=== PATIENT | female | born 1995 | race Caucasian/White ===

== ENCOUNTER 2018-08-13 11:02 | Observation (INO) ==
[2018-08-13 12:28] LABS: Amphetamine Screen,Urine Negative ng/mL (Cutoff=1000); Barbiturate Screen,Urine Negative ng/mL (Cutoff=200); Benzodiazepines Screen,Urine Negative ng/mL (Cutoff=200); Cannabinoid Screen,Urine Negative ng/mL (Cutoff = 50); Cocaine Screen,Urine Negative ng/mL (Cutoff= 300); Opiate Screen,Urine Negative ng/mL (Cutoff=300); Phencyclidine Screen,Urine Negative ng/mL (Cutoff=25)
[2018-08-13 13:36] LABS: Bilirubin,Urine Negative (Negative); Blood,Urine Negative (Negative); Clarity,Urine Cloudy (Clear); Color,Urine Yellow (Yellow); Glucose,Urine (UA) Normal (Normal); Ketones,Urine Negative (Negative); Leukocyte Esterase,Urine Moderate (Negative); Nitrite,Urine Negative (Negative); Protein,Urine Negative (Neg-Trace); Specific Gravity,Urine 1.014 (1.010-1.025); Urobilinogen,Urine Normal (Normal)
[2018-08-13 13:42] LABS: Bacteria,Urine Moderate per hpf (None-Few); Hyaline Casts,Urine None Seen per lpf (None-Few); Squamous Epithelial Cell,Urine Many per lpf (None-Few); WBC,Urine 15-30 per hpf (0-3)
[2018-08-13 13:48] LABS: RBC,Urine 0-3 per hpf (0-3)
--- NOTE | 2018-08-13 14:56 | Discharge Summary ---
Date of Encounter: 08/13/18 Time of Encounter: 14:55 - Discharge Diagnosis (1) 36 weeks gestation of Priority: Primary Status: Acute Comments: Admit to observation for possible rupture membranes at 36 weeks 5 days (2) NST (non-stress test) reactive Priority: Secondary Status: Acute Comments: Heart rate category 1 +15 x 15 accelerations, no decelerations. (3) Vaginal discharge during in third trimester Priority: Secondary Status: Acute Comments: Vaginosis panel collected Sterile speculum exam completed with large amount of yellow-white discharge noted in vaginal vault. No amniotic fluid visualized at cervical os with Valsalva maneuver - Discharge Medications Prescriptions: No Action RX: Ferrous Sulfate [Iron] 1 tab PO DAILY Pnv95/Ferrous Fumarate/FA [ Vitamin Tablet] 1 tab PO DAILY Home Medications: Pnv95/Ferrous Fumarate/FA [ Vitamin Tablet] 1 tab PO DAILY 08/13/18 [History] RX: Ferrous Sulfate [Iron] 1 tab PO DAILY 08/13/18 [History] Allergies/Adverse Reactions: Allergy/AdvReac Type Severity Reaction Status Date / Time No Known Allergies Allergy Verified 08/13/18 11:26 Data Procedures and tests throughout hospitalization: Laboratory Tests 08/13/18 08/13/18 11:55 13:13 Urine Color Yellow Urine Clarity Cloudy A Urine pH 7.0 Ur Specific [place] 1.014 Urine Protein Negative Urine Glucose (UA) Normal Urine Ketones Negative Urine Blood Negative Urine Nitrite Negative Urine Bilirubin Negative Urine Urobilinogen Normal Ur Leukocyte Esterase Moderate H Urine Microscopic RBC 0-3 Urine Microscopic WBC 15-30 H Ur Squamous Epith Cells Many H Urine Bacteria Moderate H Hyaline Casts None Seen Ur Culture Indicated? YES A Urine Opiates Screen Negative Ur Barbiturates Screen Negative Ur Phencyclidine Scrn Negative Ur Amphetamines Screen Negative U Benzodiazepines Scrn Negative Urine Cocaine Screen Negative U Marijuana (THC) Screen Negative Ur Drug Screen Interp See Below Labs on day of discharge: Labs from last 24 hours 08/13/18 08/13/18 13:13 11:55 Urine Color Yellow Urine Clarity Cloudy A Urine pH 7.0 Ur Specific [place] 1.014 Urine Protein Negative Urine Glucose (UA) Normal Urine Ketones Negative Urine Blood Negative Urine Nitrite Negative Urine Bilirubin Negative Urine Urobilinogen Normal Ur Leukocyte Esterase Moderate H Urine Microscopic RBC 0-3 Urine Microscopic WBC 15-30 H Ur Squamous Epith Cells Many H Urine Bacteria Moderate H Hyaline Casts None Seen Ur Culture Indicated? YES A Urine Opiates Screen Negative Ur Barbiturates Screen Negative Ur Phencyclidine Scrn Negative Ur Amphetamines Screen Negative U Benzodiazepines Scrn Negative Urine Cocaine Screen Negative U Marijuana (THC) Screen Negative Ur Drug Screen Interp See Below Preliminary micro results at discharge 08/13/18 13:13 Urine Culture - Preliminary Urine,Clean Catch Culture is incubating. Date of admission: 08/13/18 11:02 Discharging clinician: Xenia Seymour Anticipated date of discharge: 08/13/18 - Patient Status Disposition: Home, Self-Care Condition: Good Functional capacity at discharge: independent ambulation Overall status at discharge: patient is progressing back to baseline - Discharge Instructions Follow Up With: Terrell Campos MD [Partnered Physician] - Additional Instructions: LABOR AND DELIVERY DISCHARGE INSTRUCTIONS Signs and Symptoms to be Reported to your Doctor Immediately: * Sudden gush, continuous or intermittent lead of fluid from vagina (note the time of gush and color of fluid) * Onset of bright red vaginal bleeding with or without pain (if you had a vaginal exam during this visit you may notice some dark red spotting. This is normal.) * Lower abdominal cramping or backache that is premenstrual-like feeling. * More than 6 contractions in one hour. * Burning during urination, having to urinate more frequently or pain in your mid-back. * A change in the baby's activity. This could be an increase or decrease in activity. * Severe headache which does not go away with tylenol. * Sudden swelling in the face, hands, arms and/or legs. * Upper abdominal pain - sometimes associated with heartburn or nausea and is not relieved by Maalox, Mylanta or Tums. * Dizziness or blurred vision or visual disturbances (seeing stars/lights). * Kick Counts One hour after a meal, lay down on one side in a quiet place. Count the number of doyle the baby moves during an hour. If less than 6 movements, notify your physician. Diet: *Force fluids - 8-10 tall glasses of fluid per day. May include popsicles and jello. *Limit caffeine - this includes chocolate, coffee, tea, any soft drink containing such as all trung, Ramiro Yellow and Mountain Dew - Diet and Activity Activity: resume usual activities as tolerated Diet: regular diet Hospital Course [employer] Hospital course: Cyndy is a at 36 weeks 5 days who arrived today with complaints of possible rupture membranes last night around 9:00 PM. She states at that time she had fluid dripping down her legs for approximately 1 minute. The leaking had subsided until this morning when she noticed a discharge. She reports positive movement, denies vaginal bleeding and contractions. A sterile speculum exam was completed and a moderate amount of white yellow vaginal discharge was noted. Sample was obtained for fern which returned negative and vaginosis panel was collected and is pending at time of note. Cervix appeared to be closed. Patient was given labor precautions and discharged home with significant other at her side. She will be notified if her vaginosis panel returns abnormal. She is to follow-up in the office this week with Dr. Campos for routine care. Time Attestation: Total time spent providing and/or coordinating discharge services: Time Spent: Less than 30 minutes Exam - Constitutional General appearance IM: A&O X 3, pleasant, no acute distress, answers questions appropriately - Respiratory Respiratory exam: Present: CTAB - Cardiovascular Cardiovascular exam IM: Present: RRR, +S1, +S2 - GI/Abdominal GI/Abdominal exam IM: normal bowel sounds, soft - Rectal Rectal exam: deferred - External exam: normal external exam - Extremities Exam Extremities exam IM: Present: full ROM, normal capillary refill, normal inspection - Neurological Exam Neurological exam: alert, normal gait, oriented X3 - VTE Reasons for not Prescribing Prophylaxis: Treatment not Indicated - Low risk for VTE
[2018-08-13 14:58] LABS: Gardnerella DNA Not Detected (Not Detect); Trichomonas DNA Not Detected (Not Detect)
[2018-08-13 14:59] LABS: Candida DNA Not Detected (Not Detect)
== END 2018-08-13 14:42 | disposition home or self-care (01) ==
LOC: 1NENULAB
PROVIDERS: ADMIT Registered Nurse; ATTEND Registered Nurse

== ENCOUNTER 2018-08-31 06:25 | Inpatient (IN) ==
[~2018-08-31 06:25] MED LIST: *HR* Nalbuphine 10 MG/ML AMPUL IVP PRN; Famotidine 20 MG/2 ML VIAL IVP PRN; Lidocaine 1% 20 ML MDV INFILT PRN; Metoclopramide 10 MG/2 ML VIAL IVP PRN; Naloxone 0.4 MG/ML INJ IVP PRN; Ondansetron 4 MG/2 ML VIAL IVP PRN
[2018-08-31] MEDS ORDERED: Ringers Solution, Lactated 1,000 ML IVC SCH (06:30)
--- NOTE | 2018-08-31 06:30 | OB/GYN History & Physical ---
Date of Encounter: 08/31/18 Time of Encounter: 06:27 Assessment and Plan (1) 39 weeks gestation of Current visit: Yes Status: Acute (2) SROM (spontaneous rupture of membranes) Current visit: Yes Status: Acute Admit to L&D for observation of labor Expectant management Labs-CBC and clot to hold Intermittent auscultation okay after reactive NST Pain management plan is natural childbirth Anticipate vaginal delivery Dr. Yuen is the OB on-call and is available as needed (3) Intrauterine Current visit: Yes Status: Acute (4) Type A blood, Rh positive Current visit: Yes Status: Acute (5) NST (non-stress test) reactive Current visit: No Status: Acute History of Present Illness Chief complaint: SROM in early labor HPI: Ms. Grant is a 23 year old female at 39 weeks 2 days gestation with an estimated date of of 09/05/18 dated by early ultrasound. She presents with reports of contractions starting about 0400 this morning followed by leakage of fluid starting at about 0530. She endorses good movement and denies vaginal bleeding. Her has been uncomplicated. She has been seen by Dr. Campos throughout her . records are available electronically and have been reviewed. Labs: A+ GBS- HIV- Hep B- T. Palladium- GC/CL- Rubella immune Varicella immune Past Med Surg Social Fam HX - Past Medical History Medical history: no medical history Psychiatric history: no psych history - Past Surgical History Surgical History: no surgical history - Social History Smoking Status: Never smoker Smokeless Tobacco Status: No Alcohol use: none Drug use: none - Family History Mother Family Member Ethnicity: Non- Living Status: Still Living Hx Family Cardiac Disorders: No Hx Family Respiratory Disorders: No Hx Family Cancer: No Hx Family GI Disorders: No Hx Family Endocrine Disorder: Yes (thyroid) Hx Family Neuromuscular Disorders: No Hx Family Neurologic Disorders: No Hx Family HEENT Disorders: No Hx Family Autoimmune Disorders: No Obstetrical History - Pregnancies : 1 Para: 0 Term: 0 : 0 Ab's: 0 Livin Medications and Allergies Pnv95/Ferrous Fumarate/FA [ Vitamin Tablet] 1 tab PO DAILY 08/13/18 [History] Hyoscyamine SL [Levsin SL] 0.125 mg SL Q4HR PRN #30 tab.subl 08/18/18 [Rx] Macrobid mg PO BID 08/18/18 [History] Allergy/AdvReac Type Severity Reaction Status Date / Time No Known Allergies Allergy Verified 08/18/18 01:34 Review of System OB All systems PM: reviewed and no additional remarkable complaints except as stated Exam - Constitutional Constitutional: well developed, well nourished, average body habitus, mild distress - HEENT HEENT: PERRL, Normocephaly, Mucus Membranes Moist - Neck Neck exam: full ROM - Lungs Respiratory exam: CTAB - Cardiovascular Cardiovascular exam: RRR, +S1, +S2 - Breasts Breast: bilateral: normal - Abdomen Abdomen: Present: bowel sounds normal, gravid, non tender - Extremities Extremities exam: full ROM, normal capillary refill, normal inspection, radial pulses palpable and symmetrical - Vulva Vulva: bilateral: normal - Vagina Vagina: Present: normal moisture - Cervix Dilation: 0 (FT) Effacement: 70 Station: -1 - Uterus Uterus exam: Present: normal size, normal contour - Adnexa Adnexa: bilateral: normal - Anus/Rectum Anus/Rectum: Present: normal perianal skin Results All other labs normal. - VTE Reasons for not Prescribing Prophylaxis: Treatment not Indicated - Low risk for VTE
[2018-08-31 06:50] LABS: Hematocrit 35.2 % (35.3-44.9); Immature Granulocytes % 0.6 % (0-4); Lymphocytes % 18.9 %; Mean Corpuscular HGB Conc 34.1 g/dL (31.6-35.5); Mean Corpuscular Hemoglobin 30.9 pg (28.0-33.3); Mean Corpuscular Volume 90.7 fL (83.0-100.0); Mean Platelet Volume 12.1 fL (9.4-12.4); Platelet Count 202 K/mcL (140-400); Red Blood Count 3.88 M/mcL (3.82-4.97); Red Cell Distribution Width 12.9 % (11.5-14.5); Segmented Neutrophils % 71.7 %; White Blood Count 9.5 K/mcL (4.3-11.1)
[2018-08-31 06:51] LABS: Basophils % 0.3 %; Eosinophils # 0.1 K/mcL (0.0-0.6); Eosinophils % 0.6 %; Lymphocytes # 1.8 K/mcL (0.6-4.6); Monocytes # 0.8 K/mcL (0.0-1.3); Monocytes % 7.9 %; Neutrophils # 6.8 K/mcL (1.6-8.9)
[2018-08-31] MEDS ORDERED: Epidural Premix (fent/bupiv) 110 ML EP SCH (07:45)
--- NOTE | 2018-08-31 07:45 | Anesthesia Evaluation PreOp ---
Date of Encounter: 08/31/18 Time of Encounter: 07:45 - Past History Planned Operation: Del, 39wk induction SROM, Cardiac History: Denies any Significant Hx Pulmonary History: Denies Any Significant HX SHODER FILLER History: Denies Any Significant HX Other Medical History: Denies Any Significant HX Anesthesia History: No Prior Anesthetic Complications, Past Anesthesia (no family hx.) Alcohol Use: none Drug use: none Medications and Allergies Pnv95/Ferrous Fumarate/FA [ Vitamin Tablet] 1 tab PO DAILY 08/13/18 [History] Hyoscyamine SL [Levsin SL] 0.125 mg SL Q4HR PRN #30 tab.subl 08/18/18 [Rx] Macrobid mg PO BID 08/18/18 [History] Allergy/AdvReac Type Severity Reaction Status Date / Time No Known Allergies Allergy Verified 08/18/18 01:34 Anesthesia Results - Labs 08/31/18 06:35 Anesthesia Exam - HEENT Pupil (Motor): Pupils equal Mallampati: II Teeth: Normal Oral Opening: Greater than 3 - SHODER FILLER LOC: Oriented SHODER FILLER Motor: Normal RUE, Normal LUE, Normal RLE, Normal LLE, Normal Face SHODER FILLER Sensory: Normal: RUE, LUE, RLE, LLE, Face - Cardiac Rhythm: Regular Murmur: None - Pulmonary Breath Sounds: bilateral Clear Respiratory Effort: Symmetrical Anesthesia Assess/Plan ASA Score: 2 Level of consciousness: Cooperative, Oriented Anesthetic Plan: General, Spinal, Epidural Monitoring Plan: Standard Monitors Recovery Plan: PACU
[2018-08-31 09:31] LABS: Amphetamine Screen,Urine Negative ng/mL (Cutoff=1000); Barbiturate Screen,Urine Negative ng/mL (Cutoff=200); Benzodiazepines Screen,Urine Negative ng/mL (Cutoff=200); Cannabinoid Screen,Urine Negative ng/mL (Cutoff = 50); Cocaine Screen,Urine Negative ng/mL (Cutoff= 300); Opiate Screen,Urine Negative ng/mL (Cutoff=300); Phencyclidine Screen,Urine Negative ng/mL (Cutoff=25)
--- NOTE | 2018-08-31 10:52 | OB Labor Progress Note ---
Date of Encounter: 08/31/18 Time of Encounter: 10:47 Labor Progress Note - Subjective Subjective: Coping well with contractions. Plans an unmedicated . - Vital Signs Vital Signs: WNL - Cervix Cervix: 1/50/-2 - Heart Tones Heart Tones: FHR 130 bpm, moderate variability, +15x15 accels, no decels. Intermittent monitoring - [place]: 2-3 min - Interventions Interventions: SVE Discussed options of cervical veliz, AROM of forebag, or augmentation me dications. Patient would like to wait to proceed with any intervention as she plans an unmedicated . - Plan Physician notified: Yes Plan: Continue intermittent auscultation/monitoring Anticipate
--- NOTE | 2018-08-31 12:32 | OB Labor Progress Note ---
Date of Encounter: 08/31/18 Time of Encounter: 12:29 Labor Progress Note - Subjective Subjective: Patient coping well with contractions with non-pharm pain management techniques - Vital Signs Vital Signs: WNL - Cervix Cervix: 1/80/-2 - Heart Tones Heart Tones: FHR per auscultation 140 bpm with audible accelerations. - [place]: q 2-3 minutes - Interventions Interventions: SVE After consultation with Dr. Frakn, decision made to place cervical veliz and patient accepted procedure. Single veliz balloon inserted without difficulty, 60 mL sterile water instilled. Patient tolerated without difficulty. - Plan Physician notified: Yes Physician notified details: Consulted with Dr. Frank regarding placement of cervical veliz. Plan: Continue expectant management Gentle tug to veliz hourly Recheck when veliz is expelled Anticipate
[2018-08-31] MEDS ORDERED: Epidural Premix (fent/bupiv) 110 ML EP ONE (14:56)
--- NOTE | 2018-08-31 15:21 | Anesthesia Procedures ---
Date of Encounter: 08/31/18 Time of Encounter: 15:03 Procedures: Anesthesia - Epidural/Spinal Patient ID/Chart reviewed: Yes Patient examined: Yes OB Eval: Gestational age: term OB Eval: : 1 OB Eval: Contractions: Non-stressed pattern Consent Obtained: Yes Supplemental Oxygen: None/Room Air Site Prep: Aseptic Technique, Sterile prep and drape, 0.5% Chlorhexidine/Alcohol Patient position: upright Local Anesthetic: Lidocaine 1% Amount of Local Anesthetic used: 2 Touhy Needle Gauge: 18 Touhy Needle Depth (cm): 5 Catheter Depth at Skin (cm): 9 Test Dose (1.5% Lido + Epi): Volume given (mls): 4 Test Dose Result: Negative Loading Dose: Other: 10ml from solution Loading Dose Administered: Thru Catheter Infusion Med: 0.125% Bupivacaine w/ 2 mcg/ml Fentanyl Infusion Rate (mls/hr): [address]: Tegaderm, Tape Interspace Used: L3-L4 Loss of Resistance (TERRENCE): Yes (saline) Blood: No CSF: Yes (25g purposeful no inj. ) Paresthesia: No Procedure: vss though out procedure, FHR stable per rn;s
--- NOTE | 2018-08-31 16:46 | OB Labor Progress Note ---
Date of Encounter: 08/31/18 Time of Encounter: 16:43 Labor Progress Note - Subjective Subjective: Patient comfortable with epidural but feeling some vaginal pressure. - Vital Signs Vital Signs: WNL - Cervix Cervix: 5/80/-1 - Heart Tones Heart Tones: FHR 130 bpm, moderate variability, +15x15 accels, no decels. - [place]: 2-5 min - Interventions Interventions: SVE AROM small forebag for scant amount of fluid. - Plan Physician notified: Yes Physician notified details: Aware of SVE Plan: Epidural placement AROM after patient comfortable with epidural Pitocin augmentation if needed. Anticipate
[2018-08-31] MEDS ORDERED: *HR* Ropivacaine/PF 0.2% 20 ML VIAL ONE ×2 (17:10→20:14)
--- NOTE | 2018-08-31 17:41 | Anesthesia Progress Note ---
Date of Encounter: 08/31/18 Time of Encounter: 17:12 Anesthesia Note - Note Note: 08/31/18 17:40 bolus with 6ml 0.2% rop plain, neg asp, vss, fhr stable per rn's. relief noted post 10min,
[2018-08-31] MEDS ORDERED: Oxytocin 20 units/ LR 1000 mL 20 UNIT/1,000 ML BAG IVC SCH (19:00)
[2018-08-31] MEDS ORDERED: Bupivacaine-MPF 0.25% 10 ML VIAL ONE (20:56)
[2018-08-31] MEDS ORDERED: EPHEDrine 50 MG/ML VIAL ONE (21:24)
--- NOTE | 2018-08-31 21:37 | Anesthesia Procedures ---
Date of Encounter: 08/31/18 Time of Encounter: 21:14 Procedures: Anesthesia - Epidural/Spinal Patient ID/Chart reviewed: Yes Patient examined: Yes OB Eval: Contractions: Non-stressed pattern Consent Obtained: Yes Supplemental Oxygen: None/Room Air Site Prep: Aseptic Technique, Sterile prep and drape, 0.5% Chlorhexidine/Alcohol Patient position: upright Local Anesthetic: Lidocaine 1% Amount of Local Anesthetic used: 2 Touhy Needle Gauge: 18 Touhy Needle Depth (cm): 5 Catheter Depth at Skin (cm): 10 Test Dose (1.5% Lido + Epi): Volume given (mls): 4 Test Dose Result: Negative Loading Dose: Other: 5ml 0.15% rop plain Loading Dose Administered: Thru Catheter Infusion Med: 0.125% Bupivacaine w/ 2 mcg/ml Fentanyl Infusion Rate (mls/hr): [address]: Tegaderm, Tape Interspace Used: L2-L3 Loss of Resistance (TERRENCE): Yes (saline) Blood: No CSF: Yes (25g with 0.7ml 0.25% bup plain) Paresthesia: No Procedure: after rebolus with 7ml 0.2% rop plain, pt still c/o of lower abd pain, after talking with patient and giving options with R/B's she wishes to proceed with another epidural at different interspace. vss though out procedure, fhr stable per rn's
--- NOTE | 2018-09-01 00:27 | OB/GYN Procedure Note ---
Delivery - Delivery Date: 09/01/18 Provider: Xenia Seymour Intrapartum events: febrile- temp >100.3 Delivery induction: veliz Delivery augmentation: pitocin Delivery monitor: external FHT, internal uterine Anesthesia: epidural Quantitated Blood Loss: 150 - Infant (s) A Infant Delivery Date: 08/31/18 Infant Delivery Time: 23:29 Presentation: vertex Position: SULEMA Route of delivery: Gender: Male Viability: Viable at 1 minute: 8 at 5 mins: 9 Shoulder Dystocia: not encountered Specimens collected: cord blood Placenta: spontaneous Cord: 3 umbilical vessels - Repair Episiotomy: none Laceration Description: Perineal - 2nd Degree - Complications Delivery complications: none Delivery comments: Called to room for delivery. Under maternal effort, spontaneous delivery of viable male over second-degree perineal laceration, repaired with 3-0 Vicryl in the usual fashion. perineum. placed on maternal abdomen for drying and stimulation. Cord clamped and cut after pulsation ceased. Spontaneous delivery of intact placenta, EBL 150 mls. No nuchal cord, shoulder dystocia, or meconium encountered. Mother and infant in kangaroo care for 2 hour recovery. - Disposition Mom disposition: stable in LDR [place] disposition: stable in LDR
[2018-09-01] MEDS ORDERED: Ibuprofen 600 MG TABLET PO ONE (00:35)
[2018-09-01] MEDS ORDERED: Benzocaine/Menthol 56 GM AEROSOL SPRAY TP PRN (02:46)
[2018-09-01] MEDS ORDERED: *HR* HYDROcodone/Acet 5/325 mg TABLET PO PRN (02:46)
[2018-09-01] MEDS ORDERED: Lanolin 7 G OINT...G. TP PRN (02:46)
[2018-09-01] MEDS ORDERED: Ibuprofen 600 MG TABLET PO PRN (02:46)
[2018-09-01] MEDS ORDERED: Acetaminophen 325 MG TABLET PO PRN (02:46)
[2018-09-01] MEDS ORDERED: Oxytocin 20 units/ LR 1000 mL 20 UNIT/1,000 ML BAG IVC SCH (02:46)
[2018-09-01] MEDS: Prenatal Vit/FA 1 EACH TABLET PO SCH (07:57)
--- NOTE | 2018-09-01 10:50 | OB/GYN Progress Note ---
Date of Encounter: 09/01/18 Time of Encounter: 10:48 - Assessment and Plan (1) Vaginal delivery Current Visit: Yes Status: Acute Plan to discharge home tomorrow follow up with Dr. Campos in 4-6 weeks (2) Breast feeding status of mother Current Visit: Yes Status: Acute support prn Subjective - Subjective Principal diagnosis: day 1 Interval history: Patient is a 23 y/o that had a late last night. Patient denies any pain at this time. Patient reports lochia is moderate. Patient is breast feeding male infant. Plan to discharge home tomorrow. Patient reports: appetite normal, voiding normally, pain well controlled, ambulating normally : doing well, nursing well Objective - Latest Vital Signs Latest vital signs: Vital Signs Temp Pulse Resp BP Pulse Ox 09/01/18 07:56 97.8 F 80 16 130/77 09/01/18 05:15 98.3 F 84 16 128/74 97 09/01/18 03:46 98.2 F 98 16 138/83 97 09/01/18 02:50 98.2 F 90 16 152/83 97 Intake and Output 08/31/18 09/01/18 09/01/18 23:59 07:59 15:59 Intake Total 0 / 360 360 / 360 Output Total 500 / 1400 900 / 1400 Balance -500 / -1040 -540 / -1040 Intake: Oral 0 / 360 360 / 360 Output: Urine 500 / 1400 900 / 1400 Other: Meal Breakfast Percent of Meal Consumed 100% Weight 67.8 kg Patient Weight 09/01/18 23:59 Weight 67.8 kg - Exam Lungs: bilateral: normal Chest: Normal S1, Normal S2 Extremities: Present: normal Abdomen: Present: normal appearance, soft Uterus: Present: normal, firm Uterus Position: At Umbilicus, Midline
[2018-09-02] MEDS: Prenatal Vit/FA 1 EACH TABLET PO SCH (08:10)
[2018-09-02 08:28] VITALS: BP 119/84
--- NOTE | 2018-09-02 09:08 | Discharge Summary ---
Date of Encounter: 09/02/18 Time of Encounter: 09:03 - Discharge Diagnosis (1) Vaginal delivery Priority: Primary Status: Acute Comments: Patient meeting day one milestones. Pain well-controlled with prescribed medications. Voiding without difficulty, tolerating regular diet, bleeding light. No bowel movement yet. Anticipate discharge today (2) Second degree perineal laceration during delivery Priority: Secondary Status: Acute Comments: Motrin, Dermoplast, ice packs as needed for discomfort. (3) Breast feeding status of mother Priority: Secondary Status: Acute Comments: support as needed. We will provide breast pump prescription at discharge. - Discharge Medications Prescriptions: New Breast Pump [BREAST PUMP] 1 each .ROUTE AD #1 each Docusate [Colace] 100 mg PO BID #60 capsule Benzocaine/Menthol [place] [Dermoplast [place]] 1 appl TP QID PRN aerosol PRN Reason: See Comments Lanolin [Lansinoh] 1 appl TP TID PRN oint...g. PRN Reason: Sore Nipples Ibuprofen [Motrin] 600 mg PO Q6HR PRN #60 tablet PRN Reason: Cramping HYDROcodone/Acet 5/325 mg [Pitts 5-325 mg] 1 tab PO Q6HR PRN 3 Days #10 tablet PRN Reason: Moderate Pain (4-6) Acetaminophen [Tylenol] 650 mg PO Q6HR PRN tablet PRN Reason: Mild Pain Continued Pnv95/Ferrous Fumarate/FA [ Vitamin Tablet] 1 tab PO DAILY Home Medications: Pnv95/Ferrous Fumarate/FA [ Vitamin Tablet] 1 tab PO DAILY 08/13/18 [History] Acetaminophen [Tylenol] 650 mg PO Q6HR PRN tablet 09/02/18 [Rx] Benzocaine/Menthol [place] [Dermoplast [place]] 1 appl TP QID PRN aerosol 09/02/18 [Rx] Breast Pump [BREAST PUMP] 1 each .ROUTE AD #1 each 09/02/18 [Rx] Docusate [Colace] 100 mg PO BID #60 capsule 09/02/18 [Rx] HYDROcodone/Acet 5/325 mg [Pitts 5-325 mg] 1 tab PO Q6HR PRN 3 Days #10 tablet 09/02/18 [Rx] Ibuprofen [Motrin] 600 mg PO Q6HR PRN #60 tablet 09/02/18 [Rx] Lanolin [Lansinoh] 1 appl TP TID PRN oint...g. 09/02/18 [Rx] Allergies/Adverse Reactions: Allergy/AdvReac Type Severity Reaction Status Date / Time No Known Allergies Allergy Verified 08/18/18 01:34 Data Procedures and tests throughout hospitalization: Laboratory Tests 08/31/18 08/31/18 06:35 08:20 WBC 9.5 RBC 3.88 Hgb 12.0 Hct 35.2 L MCV 90.7 MCH 30.9 MCHC 34.1 RDW 12.9 Plt Count 202 MPV 12.1 Immature Gran % 0.6 Seg Neutrophils % 71.7 Lymphocytes % 18.9 Monocytes % 7.9 Eosinophils % 0.6 Basophils % 0.3 Neutrophils # 6.8 Lymphocytes # 1.8 Monocytes # 0.8 Eosinophils # 0.1 Basophils # 0.0 Urine Opiates Screen Negative Ur Barbiturates Screen Negative Ur Phencyclidine Scrn Negative Ur Amphetamines Screen Negative U Benzodiazepines Scrn Negative Urine Cocaine Screen Negative U Marijuana (THC) Screen Negative Ur Drug Screen Interp See Below Date of admission: 08/31/18 06:25 Primary care physician: PCP NONE Consults: 09/01/18 02:46 Consult to Director Of Analytics [CONS] Routine Comment: Vaginal delivery, consult needed Discharging clinician: Xenia Seymour Anticipated date of discharge: 09/02/18 - Patient Status Disposition: Home, Self-Care Condition: Good Functional capacity at discharge: independent ambulation Overall status at discharge: patient is progressing back to baseline - Discharge Instructions Follow Up With: NONE,PCP [Primary Care Provider] - Terrell Campos MD [Partnered Physician] - - Diet and Activity Activity: resume usual activities as tolerated Diet: regular diet Hospital Course Reason for admission: active labor, rupture of membranes, IUP at term Delivery: Episiotomy: none Laceration: 2nd degree Other procedures: none complications: perineal laceration Discharge diagnosis: IUP at term delivered baby: male Hospital course: Delivery Date: 09/01/18 Provider: Xenia Seymour Intrapartum events: febrile- temp >100.3 Delivery induction: veliz Delivery augmentation: pitocin Delivery monitor: external FHT, internal uterine Anesthesia: epidural Quantitated Blood Loss: 150 - (s) Infant A Delivery Date: 08/31/18 Infant Delivery Time: 23:29 Presentation: vertex Position: SULEMA Route of delivery: Gender: Male Viability: Viable at 1 minute: 8 at 5 mins: 9 Shoulder Dystocia: not encountered Specimens collected: cord blood Placenta: spontaneous Cord: 3 umbilical vessels - Repair Episiotomy: none Laceration Description: Perineal - 2nd Degree - Complications Delivery complications: none Delivery comments: Called to room for delivery. Under maternal effort, spontaneous delivery of viable male infant over second-degree perineal laceration, repaired with 3-0 Vicryl in the usual fashion. perineum. placed on maternal abdomen for drying and stimulation. Cord clamped and cut after pulsation ceased. Spontaneous delivery of intact placenta, EBL 150 mls. No nuchal cord, shoulder dystocia, or meconium encountered. Mother and in kangaroo care for 2 hour recovery. - Disposition Mom disposition: stable in LDR [place] disposition: stable in LDR Time Attestation: Total time spent providing and/or coordinating discharge services: Time Spent: Less than 30 minutes Exam - Constitutional Vitals: Temp Pulse Resp BP Pulse Ox 98.2 F 74 16 119/84 97 09/02/18 08:27 09/02/18 08:27 09/02/18 08:27 09/02/18 08:27 09/01/18 20:55 General appearance IM: A&O X 3, pleasant, no acute distress, answers questions appropriately - Respiratory Respiratory exam: Present: CTAB - Cardiovascular Cardiovascular exam IM: Present: RRR, +S1, +S2 - GI/Abdominal GI/Abdominal exam IM: normal bowel sounds, soft - Rectal Rectal exam: deferred - External exam: normal external exam Uterine Tone: Firm Uterus Position: 1 Finger Below Umbilicus, Midline - Extremities Exam Extremities exam IM: Present: full ROM, normal capillary refill, normal inspection - Neurological Exam Neurological exam: alert, normal gait, oriented X3
== END 2018-09-02 14:00 | disposition home or self-care (01) | DRG 807 ==
LOC: 1NENULAB → 1NENUOBS 09-01 02:46
PROVIDERS: ADMIT Obstetrics & Gynecology; ATTEND Obstetrics & Gynecology